=== PATIENT | female | born 1985 | race Caucasian/White ===

== ENCOUNTER 2019-12-04 15:17 | Inpatient (IN) | payer MEDICAID ==
[~2019-12-04] VITALS: Ht 154.9 cm; Wt 80.0 kg
--- NOTE | 2019-12-04 15:51 | NUR ---
Dr. Tripathi at bedside to evaluate pt. Pt c/o generalized weakness and SOB since yesterday. Pt states was at [facility] yesterday and tested positive for COVID. Pt tachypnic, 90% on 6L via NC. Pt appears drowsy but is A&O x4, denies pain at this time. Continuous heary, oxygen and BP monitors applied, all safety measures observed.
[2019-12-04 16:13] LABS: BASOPHILS % (AUTO) 0 % (0-1); EOSINOPHILS # (AUTO) 0.01 x10^3/uL (0-0.4); EOSINOPHILS % (AUTO) 0 % (1-7); LYMPHOCYTES # (AUTO) 0.92 x10^3/uL (1-3.4); LYMPHOCYTES % (AUTO) 8 % (22-44); MD NO; MEAN CORPUSCULAR HEMOGLOBIN 29.6 pg (27.0-34.8); MEAN CORPUSCULAR HGB CONC 32.1 g/dL (32.4-35.8); MEAN CORPUSCULAR VOLUME 92.2 fL (80-100); MEAN PLATELET VOLUME 8.3 fL (7.4-10.4); MONOCYTES # (AUTO) 0.45 x10^3/uL (0.2-0.8); MONOCYTES % (AUTO) 4 % (2-9); NEUTROPHILS # (AUTO) 10.05 x10^3/uL (1.8-6.8); NEUTROPHILS % (AUTO) 88 % (42-75); PLATELET COUNT 281 x10^3/uL (130-400); RED BLOOD COUNT 3.93 x10^6/uL (3.82-5.3); RED CELL DISTRIBUTION WIDTH 14.1 % (9.6-15.2)
[2019-12-04] MEDS ORDERED: FUROSEMIDE 20 MG/2 ML ONE (16:19)
[2019-12-04] MEDS ORDERED: DEXAMETHASONE 4 MG/ML, 1ML ONE (16:19)
[2019-12-04 16:21] LABS: ALANINE AMINOTRANSFERASE 79 U/L (12-78); ANION GAP 9 mmol/L (5-15); CALCIUM 8.3 mg/dL (8.5-10.1); CHLORIDE 108 mmol/L (98-107); CREATININE 0.66 mg/dL (0.55-1.02)
[2019-12-04 16:26] LABS: D-DIMER (DIC) 1.17 ug/mlFEU (0.00-0.52); PROTIME 9.1 Seconds (9.6-11.5)
[2019-12-04 16:27] LABS: ALKALINE PHOSPHATASE 165 U/L (45-117); BILIRUBIN,TOTAL 0.8 mg/dL (0.2-1.0); TOTAL PROTEIN 6.9 g/dL (6.4-8.2)
[2019-12-04] MEDS ORDERED: DOXYCYCLINE 100 MG in DEXTROSE 5% 250 ML IV SCH (16:30)
[2019-12-04] MEDS ORDERED: DEXAMETHASONE 4 MG/ML, 1ML IVPush SCH ×2 (16:30→22:30)
[2019-12-04] MEDS ORDERED: FUROSEMIDE 40 MG/4 ML IV ONE (16:30)
--- NOTE | 2019-12-04 16:45 | NUR ---
Pt able to get up to bsc to void and back to bed without difficulty. IV abx initiated per MAY. Pt with O2 sat 85% on 6L NC. Pt placed in non rebreather with O2 increased to 91%. Pt denies other needs at this time.
--- NOTE | 2019-12-04 17:15 | NUR ---
Pt reports she does not want to change into a hospital gown at this time. Pt able to get up to bsc independently to void
[2019-12-04] MEDS ORDERED: POLYETHYLENE GLYCOL 17 GM PACKET PO PRN (17:30)
[2019-12-04] MEDS ORDERED: GUAIFENESIN/DM 200-20MG, 10ML UDC PO PRN (17:30)
[2019-12-04] MEDS ORDERED: TRAZODONE 50MG TABLET PO PRN (17:30)
[2019-12-04] MEDS ORDERED: REMDESIVIR 200 MG in SODIUM CHLORIDE 0.9% 250 ML IVPB ONE (17:30)
[2019-12-04] MEDS ORDERED: POTASSIUM CHLORIDE 20 MEQ TAB.ER.PRT PO SCH (17:30)
[2019-12-04] MEDS ORDERED: ENOXAPARIN 80 MG/0.8 ML SQ SCH (17:30)
[2019-12-04] MEDS ORDERED: ACETAMINOPHEN 325 MG TABLET PO PRN (17:30)
[2019-12-04] MEDS ORDERED: ONDANSETRON 2MG/ML, 2ML IVPush PRN (17:30)
--- NOTE | 2019-12-04 17:52 | NUR ---
Pt with increasing SOB despite increased oxygen demands. Discussed with Dr. Tripathi. RT at bedside to assess pt for optiflow vs bipap
[2019-12-04] MEDS ORDERED: LORazepam 2 MG/ML, 1ML IVPush ONE (18:00)
[2019-12-04] MEDS ORDERED: LORazepam 2 MG/ML, 1ML ONE (18:01)
--- NOTE | 2019-12-04 18:25 | NUR ---
[facility] at bedside to evaluate pt.
--- NOTE | 2019-12-04 18:27 | NUR ---
Dr. Tripathi at bedside to evaluate pt.
[2019-12-04] MEDS ORDERED: PROPOFOL 100 ML IV PRN (19:05)
[2019-12-04] MEDS ORDERED: PROPOFOL 100 ML IV ONE (19:18)
--- NOTE | 2019-12-04 19:20 | NUR ---
Late entry due to pt care: Pt moved to rm [address] Tripathi. 20mg Etomidate IVP given at 1846, 100mg Succinylcholine given at 1847. RSI completed at 184- 7.5 ETT 23cm@lip inserted by Dr. Tripathi. Pt tolerated intubation well, VSS throughout. Propofol gtt initiated at 50mcg/kg/min per Dr. Tripathi at 1850. Pt opening eyes, attempting to remove ETT and other medical devices. 5mg Versed given IVP per Dr. Tripathi at 1905. Pt continues with occasional coughing and rapid resp rate: 50/min. Soft restraints applied per order. Will continue to assess need for continued medication for sedation.
[2019-12-04] MEDS ORDERED: SUCCINYLCHOLINE 20 MG/ML, 10ML IVPush ONE (19:30)
[2019-12-04] MEDS ORDERED: MIDAZOLAM 1 MG/ML, 2ML IVPush ONE ×2 (19:30→20:00)
[2019-12-04] MEDS ORDERED: ETOMIDATE 20 MG/10 ML IV ONE (19:30)
--- NOTE | 2019-12-04 19:31 | NUR ---
Pharmacy called to request STAT Versed gtt.
[2019-12-04] MEDS: MIDAZOLAM HCL 50 MG in SODIUM CHLORIDE 0.9% 40 ML IV PRN (19:52)
--- NOTE | 2019-12-04 20:22 | NUR ---
LATE ENTRY: FGOLEY PLACED. PT VERY AGITATED. VERSED DRIP STARTED. OG PLACED. PT CALMER BUT STILL HAS PERIODS OF AGGITATION, VSS. WAITING FGOR BED ASSIGNMENT
[2019-12-04] MEDS ORDERED: FENTANYL PF 1,000 MCG in SODIUM CHLORIDE 0.9% 80 ML IV PRN (20:30)
[2019-12-04] MEDS ORDERED: FENTANYL PF 100 MCG/2ML IVPush ONE ×2 (20:30→21:00)
[2019-12-04] MEDS ORDERED: FENTANYL PF 100 MCG/2ML ONE (20:33)
--- NOTE | 2019-12-04 20:48 | NUR ---
PROP REDUCED AND VERSED INCREASED DUE TO HOTN IN PT. MD NOTIFED. FENTYNAL DRIP ORDERED. CENTRAL LINE TO BE PLACED.
[2019-12-04] MEDS ORDERED: MELATONIN 5 MG TABLET PO SCH (21:00)
[2019-12-04] MEDS ORDERED: VECURONIUM 10 MG IVPush PRN (21:00)
[2019-12-04] MEDS ORDERED: KETAMINE 10 MG/ML, 20ML ONE (21:04)
[2019-12-04] MEDS ORDERED: KETAMINE 100 MG in SODIUM CHLORIDE 0.9% 99 ML IV ONE (21:06)
[2019-12-04] MEDS ORDERED: SODIUM CHLORIDE 0.9% IV ONE ×2 (21:30)
[2019-12-04] MEDS ORDERED: KETAMINE IV ONE ×2 (21:30)
--- NOTE | 2019-12-04 21:30 | NUR ---
central line placed. Pt resting after ketamine dose. ketamine drip ordered. bp improving with prop dose lowered. pt to be transferred after report
[2019-12-04] MEDS ORDERED: KETAMINE 10 MG/ML, 20ML IV ONE (22:00)
[2019-12-04] MEDS ORDERED: PHARMACY MAY ADJ FOR RENAL FX MC SCH (23:00)
[2019-12-04] MEDS ORDERED: LIDOCAINE-MPF 1%, 2ML ENDO PRN (23:00)
[2019-12-04] MEDS ORDERED: GLUCAGON 1 MG IM PRN (23:00)
[2019-12-04] MEDS ORDERED: DEXTROSE 4 GM TAB.CHEW PO PRN (23:00)
[2019-12-04] MEDS ORDERED: DEXTROSE 50%, 50ML SYRINGE IVPush PRN (23:00)
[2019-12-04] MEDS ORDERED: SENNA/DOCUSATE TABLET NG PRN (23:00)
[2019-12-04] MEDS ORDERED: ONDANSETRON 2MG/ML, 2ML IV PRN (23:00)
[2019-12-04] MEDS: FENTANYL PF 1,000 MCG in SODIUM CHLORIDE 0.9% 80 ML IV PRN (23:41)
[2019-12-04] MEDS: SODIUM CHLORIDE FLUSH 10ML SYR IVF SCH (23:42)
[2019-12-04] MEDS: AZITHROMYCIN 500 MG in SODIUM CHLORIDE 0.9% 250 ML IV SCH (23:42)
[2019-12-04] MEDS: FAMOTIDINE 20 MG/2 ML IV SCH (23:57)
[2019-12-04] MEDS ORDERED: POTASSIUM CHLORIDE 20 MEQ PACKET ONE (23:57)
[2019-12-04] MEDS: ASCORBATE SODIUM 3,000 MG in SODIUM CHLORIDE 0.9% 250 ML IVPB SCH (23:58)
[2019-12-05] MEDS ORDERED: POTASSIUM CHLORIDE 20 MEQ PACKET PO SCH
[2019-12-05 02:10] VITALS: BP 97/50
[2019-12-05] MEDS: CEFTRIAXONE PMX 2GM/50ML 50 ML IV SCH ×2 (02:28→23:44)
[2019-12-05] MEDS: PROPOFOL 100 ML IV PRN ×5 (02:28→23:55)
[2019-12-05] MEDS: ASCORBATE SODIUM 3,000 MG in SODIUM CHLORIDE 0.9% 250 ML IVPB SCH (02:33)
[2019-12-05] MEDS: NOREPINEPHRINE 8 MG in SODIUM CHLORIDE 0.9% 242 ML IV PRN ×2 (03:30→17:50)
[2019-12-05 04:43] LABS: ALBUMIN 1.7 g/dL (3.4-5.0); ANION GAP 10 mmol/L (5-15); CALCIUM 7.4 mg/dL (8.5-10.1); CHLORIDE 114 mmol/L (98-107)
[2019-12-05 04:47] LABS: ALANINE AMINOTRANSFERASE 61 U/L (12-78); ALKALINE PHOSPHATASE 131 U/L (45-117); BILIRUBIN,TOTAL 0.6 mg/dL (0.2-1.0); CREATININE 0.57 mg/dL (0.55-1.02); TOTAL PROTEIN 5.9 g/dL (6.4-8.2)
[2019-12-05 05:00] LABS: BASOPHILS # (AUTO) 0.02 x10^3/uL (0-0.1); BASOPHILS % (AUTO) 0 % (0-1); EOSINOPHILS % (AUTO) 0 % (1-7); LYMPHOCYTES # (AUTO) 1.21 x10^3/uL (1-3.4); LYMPHOCYTES % (AUTO) 12 % (22-44); MD NO; MEAN CORPUSCULAR HEMOGLOBIN 29.4 pg (27.0-34.8); MEAN CORPUSCULAR HGB CONC 31.8 g/dL (32.4-35.8); MEAN CORPUSCULAR VOLUME 92.4 fL (80-100); MEAN PLATELET VOLUME 8.8 fL (7.4-10.4); MONOCYTES # (AUTO) 0.43 x10^3/uL (0.2-0.8); MONOCYTES % (AUTO) 4 % (2-9); NEUTROPHILS # (AUTO) 8.85 x10^3/uL (1.8-6.8); NEUTROPHILS % (AUTO) 84 % (42-75); PLATELET COUNT 314 x10^3/uL (130-400); RED BLOOD COUNT 3.59 x10^6/uL (3.82-5.3); RED CELL DISTRIBUTION WIDTH 14.9 % (9.6-15.2)
[2019-12-05] MEDS: FENTANYL PF 1,000 MCG in SODIUM CHLORIDE 0.9% 80 ML IV PRN ×3 (06:05→20:20)
[2019-12-05] MEDS: MIDAZOLAM HCL 50 MG in SODIUM CHLORIDE 0.9% 40 ML IV PRN (06:06)
[2019-12-05 06:15] VITALS: BP 117/61
[2019-12-05] MEDS: ASCORBIC ACID 500 MG TABLET PO SCH ×3 (08:20→20:20)
[2019-12-05] MEDS: CHOLECALCIFEROL 5,000u TAB PO SCH (08:20)
[2019-12-05] MEDS: ZINC SULFATE 220 MG CAPSULE PO SCH (08:20)
[2019-12-05] MEDS: SENNA/DOCUSATE TABLET PO SCH (08:21)
[2019-12-05] MEDS: SODIUM CHLORIDE FLUSH 10ML SYR IVF SCH ×2 (08:21→20:19)
[2019-12-05] MEDS: DEXAMETHASONE 4 MG/ML, 1ML IVPush SCH (08:21)
[2019-12-05] MEDS: FAMOTIDINE 20 MG/2 ML IV SCH ×2 (10:39→23:44)
[2019-12-05] MEDS: ENOXAPARIN 100 MG/ML SQ SCH ×2 (10:40→23:44)
--- NOTE | 2019-12-05 15:10 | NUR ---
TF RECOMMENDATION: Promote @65mL/hr for 23 hours/day, providing 1495kcal, 93g pro, and 1254 mL free water, to start at 25mL/hr and advance 10mL/HR Q8-12 hours as tolerated; if/when medically appropriate. Addendum: 12/05/19 at [address] Amended: Links added.
[2019-12-05] MEDS: REMDESIVIR 100 MG in SODIUM CHLORIDE 0.9% 250 ML IVPB SCH (16:22)
[2019-12-05] MEDS ORDERED: MIDAZOLAM 100MG/100ML NS IV SCH (23:00)
[2019-12-05] MEDS ORDERED: MIDAZOLAM HCL 50 MG in SODIUM CHLORIDE 0.9% 40 ML IV PRN (23:00)
[2019-12-05] MEDS: AZITHROMYCIN 500 MG in SODIUM CHLORIDE 0.9% 250 ML IV SCH (23:44)
[2019-12-06] MEDS: FENTANYL PF 1,000 MCG in SODIUM CHLORIDE 0.9% 80 ML IV PRN ×3 (03:17→17:53)
[2019-12-06 04:00] VITALS: BP 106/80
[2019-12-06] MEDS: PROPOFOL 100 ML IV PRN ×4 (05:24→23:18)
[2019-12-06 06:43] LABS: BASOPHILS # (AUTO) 0.01 x10^3/uL (0-0.1); BASOPHILS % (AUTO) 0 % (0-1); EOSINOPHILS # (AUTO) 0.16 x10^3/uL (0-0.4); EOSINOPHILS % (AUTO) 1 % (1-7); LYMPHOCYTES # (AUTO) 1.53 x10^3/uL (1-3.4); LYMPHOCYTES % (AUTO) 13 % (22-44); MD NO; MEAN CORPUSCULAR HEMOGLOBIN 29.5 pg (27.0-34.8); MEAN PLATELET VOLUME 8.1 fL (7.4-10.4); MONOCYTES # (AUTO) 0.61 x10^3/uL (0.2-0.8); MONOCYTES % (AUTO) 5 % (2-9); NEUTROPHILS % (AUTO) 81 % (42-75); PLATELET COUNT 382 x10^3/uL (130-400); RED BLOOD COUNT 3.24 x10^6/uL (3.82-5.3)
[2019-12-06 06:45] LABS: ALBUMIN 1.6 g/dL (3.4-5.0); ANION GAP 8 mmol/L (5-15); CALCIUM 7.7 mg/dL (8.5-10.1); CHLORIDE 112 mmol/L (98-107)
[2019-12-06 06:48] LABS: ALANINE AMINOTRANSFERASE 49 U/L (12-78); ALKALINE PHOSPHATASE 116 U/L (45-117); BILIRUBIN,TOTAL 0.5 mg/dL (0.2-1.0); CREATININE 0.57 mg/dL (0.55-1.02); TOTAL PROTEIN 5.6 g/dL (6.4-8.2)
[2019-12-06] MEDS: ZINC SULFATE 220 MG CAPSULE PO SCH (09:00)
[2019-12-06] MEDS: SENNA/DOCUSATE TABLET PO SCH (09:24)
[2019-12-06] MEDS: ASCORBIC ACID 500 MG TABLET PO SCH ×3 (09:24→20:02)
[2019-12-06] MEDS: POTASSIUM CHLORIDE 10% 40 MEQ/30 ML UDC PO SCH ×2 (09:24→20:02)
[2019-12-06] MEDS: SODIUM CHLORIDE FLUSH 10ML SYR IVF SCH ×2 (09:24→20:12)
[2019-12-06] MEDS: DEXAMETHASONE 4 MG/ML, 1ML IVPush SCH (09:25)
[2019-12-06] MEDS: CHOLECALCIFEROL 5,000u TAB PO SCH (09:25)
[2019-12-06] MEDS: NOREPINEPHRINE 8 MG in SODIUM CHLORIDE 0.9% 242 ML IV PRN (11:04)
[2019-12-06] MEDS: ENOXAPARIN 100 MG/ML SQ SCH ×2 (11:58→23:18)
[2019-12-06] MEDS: FAMOTIDINE 20 MG/2 ML IV SCH ×2 (11:58→23:18)
[2019-12-06] MEDS: REMDESIVIR 100 MG in SODIUM CHLORIDE 0.9% 250 ML IVPB SCH (17:52)
[2019-12-06] MEDS: AZITHROMYCIN 500 MG in SODIUM CHLORIDE 0.9% 250 ML IV SCH (23:17)
[2019-12-07] MEDS: CEFTRIAXONE PMX 2GM/50ML 50 ML IV SCH (00:35)
[2019-12-07] MEDS: FENTANYL PF 1,000 MCG in SODIUM CHLORIDE 0.9% 80 ML IV PRN ×2 (02:12→08:30)
[2019-12-07 04:00] VITALS: BP 95/75
[2019-12-07] MEDS: PROPOFOL 100 ML IV PRN ×5 (04:33→23:54)
[2019-12-07 04:39] LABS: BASOPHILS # (AUTO) 0.02 x10^3/uL (0-0.1); BASOPHILS % (AUTO) 0 % (0-1); EOSINOPHILS # (AUTO) 0.26 x10^3/uL (0-0.4); EOSINOPHILS % (AUTO) 2 % (1-7); LYMPHOCYTES # (AUTO) 1.51 x10^3/uL (1-3.4); LYMPHOCYTES % (AUTO) 13 % (22-44); MD NO; MEAN CORPUSCULAR HEMOGLOBIN 29.6 pg (27.0-34.8); MEAN CORPUSCULAR HGB CONC 32.3 g/dL (32.4-35.8); MEAN CORPUSCULAR VOLUME 91.8 fL (80-100); MONOCYTES # (AUTO) 0.56 x10^3/uL (0.2-0.8); MONOCYTES % (AUTO) 5 % (2-9); NEUTROPHILS # (AUTO) 9.46 x10^3/uL (1.8-6.8); NEUTROPHILS % (AUTO) 80 % (42-75); PLATELET COUNT 354 x10^3/uL (130-400); RED BLOOD COUNT 3.06 x10^6/uL (3.82-5.3); RED CELL DISTRIBUTION WIDTH 14.6 % (9.6-15.2)
[2019-12-07 04:49] LABS: ALANINE AMINOTRANSFERASE 41 U/L (12-78); ALBUMIN 1.5 g/dL (3.4-5.0); ANION GAP 5 mmol/L (5-15); CALCIUM 7.8 mg/dL (8.5-10.1); CHLORIDE 115 mmol/L (98-107); CREATININE 0.52 mg/dL (0.55-1.02); TRIGLYCERIDES 305 mg/dL (50-200)
[2019-12-07 04:52] LABS: ALKALINE PHOSPHATASE 105 U/L (45-117); BILIRUBIN,TOTAL 0.3 mg/dL (0.2-1.0); TOTAL PROTEIN 5.5 g/dL (6.4-8.2)
[2019-12-07] MEDS: SENNA/DOCUSATE TABLET PO SCH (08:23)
[2019-12-07] MEDS: ZINC SULFATE 220 MG CAPSULE PO SCH (08:23)
[2019-12-07] MEDS: SODIUM CHLORIDE FLUSH 10ML SYR IVF SCH ×2 (08:23→20:41)
[2019-12-07] MEDS: DEXAMETHASONE 4 MG/ML, 1ML IVPush SCH (08:23)
[2019-12-07] MEDS: ASCORBIC ACID 500 MG TABLET PO SCH ×3 (08:23→20:40)
[2019-12-07] MEDS: CHOLECALCIFEROL 5,000u TAB PO SCH (08:23)
[2019-12-07] MEDS: POTASSIUM CHLORIDE 10% 40 MEQ/30 ML UDC PO SCH ×2 (08:23→20:40)
[2019-12-07] MEDS ORDERED: FUROSEMIDE 40 MG/4 ML IV ONE (09:00)
[2019-12-07] MEDS: FAMOTIDINE 20 MG/2 ML IV SCH (12:14)
[2019-12-07] MEDS: ENOXAPARIN 100 MG/ML SQ SCH (12:14)
[2019-12-07] MEDS: REMDESIVIR 100 MG in SODIUM CHLORIDE 0.9% 250 ML IVPB SCH (16:40)
[2019-12-07] MEDS: FENTANYL PF 2,500 MCG in SODIUM CHLORIDE 0.9% 200 ML IV PRN (16:41)
[2019-12-07] MEDS: NOREPINEPHRINE 8 MG in SODIUM CHLORIDE 0.9% 242 ML IV PRN (20:39)
[2019-12-08] MEDS: FAMOTIDINE 20 MG/2 ML IV SCH ×2 (00:10→11:26)
[2019-12-08] MEDS: ENOXAPARIN 100 MG/ML SQ SCH (00:10)
[2019-12-08] MEDS: AZITHROMYCIN 500 MG in SODIUM CHLORIDE 0.9% 250 ML IV SCH (00:10)
[2019-12-08] MEDS: CEFTRIAXONE PMX 2GM/50ML 50 ML IV SCH (01:09)
[2019-12-08] MEDS: PROPOFOL 100 ML IV PRN ×5 (03:21→21:41)
[2019-12-08 03:53] LABS: BASOPHILS # (AUTO) 0.02 x10^3/uL (0-0.1); BASOPHILS % (AUTO) 0 % (0-1); EOSINOPHILS % (AUTO) 2 % (1-7); LYMPHOCYTES # (AUTO) 1.45 x10^3/uL (1-3.4); LYMPHOCYTES % (AUTO) 15 % (22-44); MD NO; MEAN CORPUSCULAR HEMOGLOBIN 30.2 pg (27.0-34.8); MEAN CORPUSCULAR HGB CONC 33.2 g/dL (32.4-35.8); MEAN CORPUSCULAR VOLUME 91.1 fL (80-100); MEAN PLATELET VOLUME 8.1 fL (7.4-10.4); MONOCYTES # (AUTO) 0.61 x10^3/uL (0.2-0.8); MONOCYTES % (AUTO) 6 % (2-9); NEUTROPHILS # (AUTO) 7.31 x10^3/uL (1.8-6.8); NEUTROPHILS % (AUTO) 76 % (42-75); PLATELET COUNT 378 x10^3/uL (130-400); RED BLOOD COUNT 3.01 x10^6/uL (3.82-5.3); RED CELL DISTRIBUTION WIDTH 14.3 % (9.6-15.2)
[2019-12-08 04:00] VITALS: BP 87/50
[2019-12-08 04:05] LABS: ALANINE AMINOTRANSFERASE 40 U/L (12-78); ALBUMIN 1.5 g/dL (3.4-5.0); ANION GAP 6 mmol/L (5-15); CALCIUM 7.8 mg/dL (8.5-10.1); CHLORIDE 114 mmol/L (98-107); CREATININE 0.38 mg/dL (0.55-1.02)
[2019-12-08 04:07] LABS: ALKALINE PHOSPHATASE 105 U/L (45-117); BILIRUBIN,TOTAL 0.5 mg/dL (0.2-1.0); TOTAL PROTEIN 5.7 g/dL (6.4-8.2)
[2019-12-08] MEDS ORDERED: POTASSIUM CHLORIDE 10% 40 MEQ/30 ML UDC PO ONE (07:00)
[2019-12-08] MEDS: DEXAMETHASONE 4 MG/ML, 1ML IVPush SCH (08:20)
[2019-12-08] MEDS: ZINC SULFATE 220 MG CAPSULE PO SCH (08:20)
[2019-12-08] MEDS: SENNA/DOCUSATE TABLET PO SCH (08:20)
[2019-12-08] MEDS: ASCORBIC ACID 500 MG TABLET PO SCH ×3 (08:20→21:03)
[2019-12-08] MEDS: SODIUM CHLORIDE FLUSH 10ML SYR IVF SCH ×2 (08:21→21:03)
[2019-12-08] MEDS: CHOLECALCIFEROL 5,000u TAB PO SCH (08:21)
[2019-12-08] MEDS ORDERED: MIDAZOLAM 1 MG/ML, 5ML ONE (09:51)
[2019-12-08] MEDS ORDERED: MIDAZOLAM 1 MG/ML, 5ML IVPush ONE (10:30)
[2019-12-08] MEDS: FENTANYL PF 2,500 MCG in SODIUM CHLORIDE 0.9% 200 ML IV PRN (11:26)
--- NOTE | 2019-12-08 11:37 | NUR ---
12/07-TF GOAL: w/ propofol: VITAL HIGH PROTEIN @ 50ml/hr
[2019-12-08] MEDS ORDERED: FUROSEMIDE 40 MG/4 ML IV ONE (14:30)
[2019-12-08] MEDS: REMDESIVIR 100 MG in SODIUM CHLORIDE 0.9% 250 ML IVPB SCH (16:53)
[2019-12-09] MEDS: FAMOTIDINE 20 MG/2 ML IV SCH ×2 (00:28→12:00)
[2019-12-09] MEDS: CEFTRIAXONE PMX 2GM/50ML 50 ML IV SCH (00:28)
[2019-12-09] MEDS: PROPOFOL 100 ML IV PRN ×5 (01:33→21:07)
[2019-12-09 04:00] VITALS: BP 98/44
[2019-12-09] MEDS: FENTANYL PF 2,500 MCG in SODIUM CHLORIDE 0.9% 200 ML IV PRN ×2 (04:54→23:09)
[2019-12-09 05:52] LABS: BASOPHILS # (AUTO) 0.03 x10^3/uL (0-0.1); BASOPHILS % (AUTO) 0 % (0-1); EOSINOPHILS # (AUTO) 0.25 x10^3/uL (0-0.4); EOSINOPHILS % (AUTO) 3 % (1-7); LYMPHOCYTES # (AUTO) 1.53 x10^3/uL (1-3.4); LYMPHOCYTES % (AUTO) 16 % (22-44); MD NO; MEAN CORPUSCULAR HEMOGLOBIN 30.3 pg (27.0-34.8); MEAN CORPUSCULAR HGB CONC 33.4 g/dL (32.4-35.8); MEAN CORPUSCULAR VOLUME 90.7 fL (80-100); MONOCYTES # (AUTO) 0.63 x10^3/uL (0.2-0.8); MONOCYTES % (AUTO) 6 % (2-9); NEUTROPHILS # (AUTO) 7.42 x10^3/uL (1.8-6.8); NEUTROPHILS % (AUTO) 75 % (42-75); PLATELET COUNT 411 x10^3/uL (130-400); RED BLOOD COUNT 2.91 x10^6/uL (3.82-5.3); RED CELL DISTRIBUTION WIDTH 14.2 % (9.6-15.2)
[2019-12-09 06:29] LABS: ANION GAP 8 mmol/L (5-15); CALCIUM 8.3 mg/dL (8.5-10.1); CHLORIDE 112 mmol/L (98-107); CREATININE 0.45 mg/dL (0.55-1.02)
[2019-12-09] MEDS: ZINC SULFATE 220 MG CAPSULE PO SCH (08:20)
[2019-12-09] MEDS: POTASSIUM CHLORIDE 10% 40 MEQ/30 ML UDC PO SCH ×2 (08:20→21:06)
[2019-12-09] MEDS: DEXAMETHASONE 4 MG/ML, 1ML IVPush SCH (08:20)
[2019-12-09] MEDS: SENNA/DOCUSATE TABLET PO SCH (08:20)
[2019-12-09] MEDS: ASCORBIC ACID 500 MG TABLET PO SCH ×3 (08:20→21:07)
[2019-12-09] MEDS: CHOLECALCIFEROL 5,000u TAB PO SCH (08:20)
[2019-12-09] MEDS: SODIUM CHLORIDE FLUSH 10ML SYR IVF SCH ×2 (09:00→21:06)
[2019-12-09] MEDS: NOREPINEPHRINE 8 MG in SODIUM CHLORIDE 0.9% 242 ML IV PRN (14:04)
[2019-12-09] MEDS ORDERED: FUROSEMIDE 40 MG/4 ML IV ONE (15:00)
[2019-12-09] MEDS: ENOXAPARIN 40 MG/0.4 ML SQ SCH (15:16)
[2019-12-09] MEDS: REMDESIVIR 100 MG in SODIUM CHLORIDE 0.9% 250 ML IVPB SCH (17:11)
[2019-12-10] MEDS: CEFTRIAXONE PMX 2GM/50ML 50 ML IV SCH (00:06)
[2019-12-10] MEDS: FAMOTIDINE 20 MG/2 ML IV SCH ×3 (00:06→23:07)
[2019-12-10] MEDS: PROPOFOL 100 ML IV PRN ×6 (01:40→21:26)
[2019-12-10] MEDS: NOREPINEPHRINE 8 MG in SODIUM CHLORIDE 0.9% 242 ML IV PRN (02:38)
[2019-12-10 04:00] VITALS: BP 100/54
[2019-12-10 04:53] LABS: BASOPHILS # (AUTO) 0.02 x10^3/uL (0-0.1); BASOPHILS % (AUTO) 0 % (0-1); EOSINOPHILS # (AUTO) 0.15 x10^3/uL (0-0.4); EOSINOPHILS % (AUTO) 1 % (1-7); LYMPHOCYTES # (AUTO) 1.75 x10^3/uL (1-3.4); LYMPHOCYTES % (AUTO) 16 % (22-44); MD NO; MEAN CORPUSCULAR HEMOGLOBIN 29.6 pg (27.0-34.8); MEAN CORPUSCULAR HGB CONC 32.2 g/dL (32.4-35.8); MEAN CORPUSCULAR VOLUME 91.9 fL (80-100); MEAN PLATELET VOLUME 7.9 fL (7.4-10.4); MONOCYTES # (AUTO) 0.91 x10^3/uL (0.2-0.8); MONOCYTES % (AUTO) 8 % (2-9); NEUTROPHILS # (AUTO) 8.31 x10^3/uL (1.8-6.8); NEUTROPHILS % (AUTO) 75 % (42-75); PLATELET COUNT 432 x10^3/uL (130-400); RED BLOOD COUNT 3.04 x10^6/uL (3.82-5.3); RED CELL DISTRIBUTION WIDTH 14.2 % (9.6-15.2)
[2019-12-10 05:06] LABS: CHLORIDE 112 mmol/L (98-107)
[2019-12-10 05:12] LABS: INTERNATIONAL NORMALIZED RATIO 0.94 (0.93-1.1); PROTHROMBIN TIME 9.7 Seconds (9.6-11.5)
[2019-12-10 05:14] LABS: ALANINE AMINOTRANSFERASE 30 U/L (12-78); ALBUMIN 1.7 g/dL (3.4-5.0); ALKALINE PHOSPHATASE 96 U/L (45-117); ANION GAP 8 mmol/L (5-15); BILIRUBIN,TOTAL 0.3 mg/dL (0.2-1.0); CALCIUM 8.2 mg/dL (8.5-10.1); CREATININE 0.45 mg/dL (0.55-1.02); TRIGLYCERIDES 302 mg/dL (50-200)
[2019-12-10] MEDS: SENNA/DOCUSATE TABLET PO SCH (09:00)
[2019-12-10] MEDS: CHOLECALCIFEROL 5,000u TAB PO SCH (09:00)
[2019-12-10] MEDS: SODIUM CHLORIDE FLUSH 10ML SYR IVF SCH ×2 (09:00→20:28)
[2019-12-10] MEDS: DEXAMETHASONE 4 MG/ML, 1ML IVPush SCH (09:48)
[2019-12-10] MEDS: POTASSIUM CHLORIDE 10% 40 MEQ/30 ML UDC PO SCH ×2 (09:48→20:27)
[2019-12-10] MEDS: ZINC SULFATE 220 MG CAPSULE PO SCH (09:49)
[2019-12-10] MEDS: ASCORBIC ACID 500 MG TABLET PO SCH ×3 (09:49→20:27)
[2019-12-10] MEDS: FUROSEMIDE 40 MG/4 ML IV SCH ×2 (11:51→23:07)
[2019-12-10] MEDS ORDERED: MAGNESIUM SULFATE 1 GM in DEXTROSE 5% 100 ML IV ONE (12:00)
[2019-12-10] MEDS: FENTANYL PF 2,500 MCG in SODIUM CHLORIDE 0.9% 200 ML IV PRN (13:50)
[2019-12-10] MEDS: ENOXAPARIN 40 MG/0.4 ML SQ SCH (15:00)
[2019-12-10] MEDS: REMDESIVIR 100 MG in SODIUM CHLORIDE 0.9% 250 ML IVPB SCH (17:35)
[2019-12-11] MEDS: CEFTRIAXONE PMX 2GM/50ML 50 ML IV SCH (00:35)
[2019-12-11] MEDS: PROPOFOL 100 ML IV PRN ×7 (01:20→22:03)
[2019-12-11] MEDS: FENTANYL PF 2,500 MCG in SODIUM CHLORIDE 0.9% 200 ML IV PRN ×3 (02:18→20:46)
[2019-12-11 04:00] VITALS: BP 101/54
[2019-12-11 04:13] LABS: BASOPHILS # (AUTO) 0.11 x10^3/uL (0-0.1); BASOPHILS % (AUTO) 1 % (0-1); EOSINOPHILS # (AUTO) 0.17 x10^3/uL (0-0.4); EOSINOPHILS % (AUTO) 1 % (1-7); LYMPHOCYTES % (AUTO) 13 % (22-44); MD NO; MEAN CORPUSCULAR HEMOGLOBIN 29.8 pg (27.0-34.8); MEAN CORPUSCULAR HGB CONC 32.6 g/dL (32.4-35.8); MEAN CORPUSCULAR VOLUME 91.5 fL (80-100); MEAN PLATELET VOLUME 7.9 fL (7.4-10.4); MONOCYTES % (AUTO) 9 % (2-9); NEUTROPHILS # (AUTO) 9.52 x10^3/uL (1.8-6.8); NEUTROPHILS % (AUTO) 76 % (42-75); PLATELET COUNT 468 x10^3/uL (130-400); RED BLOOD COUNT 3.36 x10^6/uL (3.82-5.3); RED CELL DISTRIBUTION WIDTH 14.5 % (9.6-15.2)
[2019-12-11 04:25] LABS: ANION GAP 7 mmol/L (5-15); CALCIUM 8.6 mg/dL (8.5-10.1); CHLORIDE 108 mmol/L (98-107)
[2019-12-11 04:29] LABS: ALANINE AMINOTRANSFERASE 37 U/L (12-78); ALKALINE PHOSPHATASE 112 U/L (45-117); BILIRUBIN,TOTAL 0.3 mg/dL (0.2-1.0); CREATININE 0.57 mg/dL (0.55-1.02)
[2019-12-11] MEDS: SENNA/DOCUSATE TABLET PO SCH (07:58)
[2019-12-11] MEDS: ZINC SULFATE 220 MG CAPSULE PO SCH (07:58)
[2019-12-11] MEDS: ASCORBIC ACID 500 MG TABLET PO SCH ×3 (07:58→20:39)
[2019-12-11] MEDS: DEXAMETHASONE 4 MG/ML, 1ML IVPush SCH (07:58)
[2019-12-11] MEDS: CHOLECALCIFEROL 5,000u TAB PO SCH (07:59)
[2019-12-11] MEDS: SODIUM CHLORIDE FLUSH 10ML SYR IVF SCH ×2 (07:59→20:38)
[2019-12-11] MEDS: NOREPINEPHRINE 8 MG in SODIUM CHLORIDE 0.9% 242 ML IV PRN (08:00)
[2019-12-11] MEDS: FUROSEMIDE 40 MG/4 ML IV SCH ×2 (11:25→22:49)
[2019-12-11] MEDS: FAMOTIDINE 20 MG/2 ML IV SCH (11:25)
[2019-12-11] MEDS: POTASSIUM CHLORIDE 10% 40 MEQ/30 ML UDC PO SCH ×2 (11:26→20:38)
[2019-12-11] MEDS: QUETIAPINE 25MG TABLET PO SCH ×3 (11:26→20:39)
[2019-12-11] MEDS: REMDESIVIR 100 MG in SODIUM CHLORIDE 0.9% 250 ML IVPB SCH (17:25)
[2019-12-12] MEDS: FAMOTIDINE 20 MG/2 ML IV SCH ×2 (00:22→12:31)
[2019-12-12] MEDS: PROPOFOL 100 ML IV PRN (01:35)
[2019-12-12 04:00] VITALS: BP 94/51
[2019-12-12 04:19] LABS: BASOPHILS # (AUTO) 0.06 x10^3/uL (0-0.1); BASOPHILS % (AUTO) 0 % (0-1); EOSINOPHILS % (AUTO) 1 % (1-7); LYMPHOCYTES % (AUTO) 13 % (22-44); MD NO; MEAN CORPUSCULAR HEMOGLOBIN 29.9 pg (27.0-34.8); MEAN CORPUSCULAR HGB CONC 32.5 g/dL (32.4-35.8); MEAN PLATELET VOLUME 8.1 fL (7.4-10.4); MONOCYTES # (AUTO) 0.83 x10^3/uL (0.2-0.8); MONOCYTES % (AUTO) 6 % (2-9); NEUTROPHILS # (AUTO) 10.82 x10^3/uL (1.8-6.8); NEUTROPHILS % (AUTO) 79 % (42-75); PLATELET COUNT 483 x10^3/uL (130-400); RED BLOOD COUNT 3.51 x10^6/uL (3.82-5.3); RED CELL DISTRIBUTION WIDTH 14.3 % (9.6-15.2)
[2019-12-12 04:24] LABS: ALANINE AMINOTRANSFERASE 45 U/L (12-78); ALBUMIN 2.1 g/dL (3.4-5.0); ANION GAP 8 mmol/L (5-15); CALCIUM 8.7 mg/dL (8.5-10.1); CHLORIDE 106 mmol/L (98-107); CREATININE 0.52 mg/dL (0.55-1.02)
[2019-12-12 04:26] LABS: ALKALINE PHOSPHATASE 124 U/L (45-117); BILIRUBIN,TOTAL 0.4 mg/dL (0.2-1.0); TOTAL PROTEIN 7.2 g/dL (6.4-8.2)
[2019-12-12] MEDS: ZINC SULFATE 220 MG CAPSULE PO SCH (08:42)
[2019-12-12] MEDS: DEXAMETHASONE 4 MG/ML, 1ML IVPush SCH (08:42)
[2019-12-12] MEDS: ASCORBIC ACID 500 MG TABLET PO SCH ×2 (08:42→17:14)
[2019-12-12] MEDS: POTASSIUM CHLORIDE 10% 40 MEQ/30 ML UDC PO SCH (08:42)
[2019-12-12] MEDS: SODIUM CHLORIDE FLUSH 10ML SYR IVF SCH ×2 (08:42→20:31)
[2019-12-12] MEDS: QUETIAPINE 25MG TABLET PO SCH ×2 (08:43→17:14)
[2019-12-12] MEDS: CHOLECALCIFEROL 5,000u TAB PO SCH (08:43)
[2019-12-12] MEDS: SENNA/DOCUSATE TABLET PO SCH (08:43)
[2019-12-12] MEDS: NOREPINEPHRINE 8 MG in SODIUM CHLORIDE 0.9% 242 ML IV PRN (10:30)
[2019-12-12] MEDS: PRENATAL VIT/IRON/FA 1 EACH TABLET PO SCH (11:00)
[2019-12-12] MEDS ORDERED: SCOPOLAMINE 1MG PATCH TD ONE (11:00)
[2019-12-12] MEDS ORDERED: FUROSEMIDE 40 MG/4 ML ONE (12:19)
[2019-12-12] MEDS ORDERED: FUROSEMIDE 40 MG/4 ML IV ONE (12:30)
[2019-12-12] MEDS: FENTANYL PF 2,500 MCG in SODIUM CHLORIDE 0.9% 200 ML IV PRN (12:41)
[2019-12-12] MEDS: ALBUTEROL/IPRATROPIUM 2.5MG/0.5MG, 3 ML NPPB SCH ×3 (16:30→23:00)
[2019-12-12] MEDS ORDERED: ACETAMINOPHEN 325 MG TABLET PO PRN (16:30)
[2019-12-12] MEDS: REMDESIVIR 100 MG in SODIUM CHLORIDE 0.9% 250 ML IVPB SCH (17:26)
[2019-12-13] MEDS: ASCORBIC ACID 500 MG TABLET PO SCH ×4 (00:30→23:11)
[2019-12-13] MEDS: QUETIAPINE 25MG TABLET PO SCH ×4 (00:31→20:57)
[2019-12-13] MEDS: FAMOTIDINE 20 MG TABLET PO SCH ×2 (00:31→08:40)
[2019-12-13] MEDS: ALBUTEROL/IPRATROPIUM 2.5MG/0.5MG, 3 ML NPPB SCH ×6 (02:55→22:57)
[2019-12-13 04:09] VITALS: BP 95/66
[2019-12-13 04:40] LABS: ALANINE AMINOTRANSFERASE 67 U/L (12-78); ALBUMIN 2.3 g/dL (3.4-5.0); ANION GAP 10 mmol/L (5-15); CALCIUM 9.4 mg/dL (8.5-10.1); CHLORIDE 103 mmol/L (98-107); CREATININE 0.56 mg/dL (0.55-1.02); TRIGLYCERIDES 408 mg/dL (50-200)
[2019-12-13 04:42] LABS: ALKALINE PHOSPHATASE 138 U/L (45-117); BILIRUBIN,TOTAL 0.7 mg/dL (0.2-1.0); TOTAL PROTEIN 8.2 g/dL (6.4-8.2)
[2019-12-13 04:45] LABS: BASOPHILS # (AUTO) 0.06 x10^3/uL (0-0.1); BASOPHILS % (AUTO) 0 % (0-1); EOSINOPHILS # (AUTO) 0.39 x10^3/uL (0-0.4); EOSINOPHILS % (AUTO) 2 % (1-7); LYMPHOCYTES # (AUTO) 2.06 x10^3/uL (1-3.4); LYMPHOCYTES % (AUTO) 12 % (22-44); MD NO; MEAN CORPUSCULAR HEMOGLOBIN 29.5 pg (27.0-34.8); MEAN CORPUSCULAR HGB CONC 32.5 g/dL (32.4-35.8); MEAN CORPUSCULAR VOLUME 90.7 fL (80-100); MEAN PLATELET VOLUME 8.1 fL (7.4-10.4); MONOCYTES # (AUTO) 1.19 x10^3/uL (0.2-0.8); MONOCYTES % (AUTO) 7 % (2-9); NEUTROPHILS # (AUTO) 13.06 x10^3/uL (1.8-6.8); NEUTROPHILS % (AUTO) 78 % (42-75); PLATELET COUNT 519 x10^3/uL (130-400); RED BLOOD COUNT 3.88 x10^6/uL (3.82-5.3); RED CELL DISTRIBUTION WIDTH 13.8 % (9.6-15.2)
[2019-12-13] MEDS: PRENATAL VIT/IRON/FA 1 EACH TABLET PO SCH (08:39)
[2019-12-13] MEDS: ZINC SULFATE 220 MG CAPSULE PO SCH (08:39)
[2019-12-13] MEDS: CHOLECALCIFEROL 5,000u TAB PO SCH (08:39)
[2019-12-13] MEDS: POTASSIUM CHLORIDE 10% 40 MEQ/30 ML UDC PO SCH (08:39)
[2019-12-13] MEDS: DEXAMETHASONE 4 MG/ML, 1ML IVPush SCH (08:40)
[2019-12-13] MEDS: SENNA/DOCUSATE TABLET PO SCH (08:40)
[2019-12-13] MEDS: SODIUM CHLORIDE FLUSH 10ML SYR IVF SCH ×2 (08:42→20:58)
[2019-12-13] MEDS ORDERED: FUROSEMIDE 40 MG/4 ML IV SCH (09:00)
[2019-12-13] MEDS: REMDESIVIR 100 MG in SODIUM CHLORIDE 0.9% 250 ML IVPB SCH (17:26)
[2019-12-13] MEDS: NOREPINEPHRINE 8 MG in SODIUM CHLORIDE 0.9% 242 ML IV PRN (20:57)
[2019-12-13] MEDS: ENOXAPARIN 40 MG/0.4 ML SQ SCH (20:58)
[2019-12-13] MEDS ORDERED: QUETIAPINE 100MG TABLET PO SCH (21:00)
[2019-12-14] MEDS: ALBUTEROL/IPRATROPIUM 2.5MG/0.5MG, 3 ML NPPB SCH ×4 (03:00→14:08)
[2019-12-14 04:26] VITALS: BP 112/67
[2019-12-14 05:04] LABS: ANION GAP 10 mmol/L (5-15); CALCIUM 9.1 mg/dL (8.5-10.1); CHLORIDE 106 mmol/L (98-107); CREATININE 0.54 mg/dL (0.55-1.02)
[2019-12-14 05:07] LABS: MEAN CORPUSCULAR HEMOGLOBIN 29.7 pg (27.0-34.8); MEAN CORPUSCULAR HGB CONC 32.4 g/dL (32.4-35.8); MEAN CORPUSCULAR VOLUME 91.5 fL (80-100); MEAN PLATELET VOLUME 8.1 fL (7.4-10.4); PLATELET COUNT 515 x10^3/uL (130-400); RED BLOOD COUNT 3.62 x10^6/uL (3.82-5.3); RED CELL DISTRIBUTION WIDTH 14.3 % (9.6-15.2)
[2019-12-14 05:27] LABS: BASOPHILS # (AUTO) 0.07 x10^3/uL (0-0.1); BASOPHILS % (AUTO) 1 % (0-1); EOSINOPHILS # (AUTO) 0.24 x10^3/uL (0-0.4); EOSINOPHILS % (AUTO) 2 % (1-7); LYMPHOCYTES # (AUTO) 1.82 x10^3/uL (1-3.4); LYMPHOCYTES % (AUTO) 14 % (22-44); MD SCAN; MONOCYTES % (AUTO) 9 % (2-9); NEUTROPHILS # (AUTO) 9.66 x10^3/uL (1.8-6.8); NEUTROPHILS % (AUTO) 75 % (42-75)
[2019-12-14] MEDS ORDERED: DEXAMETHASONE 4 MG TABLET ONE (08:17)
[2019-12-14] MEDS ORDERED: QUETIAPINE 25MG TABLET PO SCH (09:00)
[2019-12-14] MEDS ORDERED: DEXAMETHASONE INTENSOL 1 MG/ML ORAL SOL PO SCH (09:00)
[2019-12-14] MEDS ORDERED: ALBUMIN HUMAN 25% 100 ML IV ONE ×4 (09:00→14:30)
[2019-12-14] MEDS: DEXAMETHASONE INTENSOL 1 MG/ML ORAL SOL PO SCH (09:00)
[2019-12-14] MEDS: POTASSIUM CHLORIDE 10% 40 MEQ/30 ML UDC PO SCH (09:20)
[2019-12-14] MEDS: CHOLECALCIFEROL 5,000u TAB PO SCH (09:20)
[2019-12-14] MEDS: ZINC SULFATE 220 MG CAPSULE PO SCH (09:20)
[2019-12-14] MEDS: SENNA/DOCUSATE TABLET PO SCH (09:20)
[2019-12-14] MEDS: ASCORBIC ACID 500 MG TABLET PO SCH ×3 (09:20→20:45)
[2019-12-14] MEDS: SODIUM CHLORIDE FLUSH 10ML SYR IVF SCH ×2 (09:21→21:00)
[2019-12-14] MEDS: PRENATAL VIT/IRON/FA 1 EACH TABLET PO SCH (10:37)
[2019-12-14] MEDS: ALBUTEROL-IPRATROPIUM MDI INH INH SCH ×2 (16:50→19:41)
[2019-12-14] MEDS: QUETIAPINE 25MG TABLET PO SCH (20:45)
[2019-12-14] MEDS: ENOXAPARIN 40 MG/0.4 ML SQ SCH (20:45)
[2019-12-15 04:00] VITALS: BP 108/63
[2019-12-15] MEDS: ALBUTEROL-IPRATROPIUM MDI INH INH SCH ×2 (05:17→10:22)
[2019-12-15 05:48] LABS: CHLORIDE 109 mmol/L (98-107)
[2019-12-15 05:54] LABS: ANION GAP 8 mmol/L (5-15); CALCIUM 9.6 mg/dL (8.5-10.1); CREATININE 0.49 mg/dL (0.55-1.02)
[2019-12-15 06:13] LABS: MEAN CORPUSCULAR HEMOGLOBIN 29.4 pg (27.0-34.8); MEAN CORPUSCULAR HGB CONC 32.1 g/dL (32.4-35.8); MEAN CORPUSCULAR VOLUME 91.6 fL (80-100); MEAN PLATELET VOLUME 8.1 fL (7.4-10.4); PLATELET COUNT 433 x10^3/uL (130-400); RED BLOOD COUNT 3.28 x10^6/uL (3.82-5.3); RED CELL DISTRIBUTION WIDTH 14.1 % (9.6-15.2)
[2019-12-15 06:36] LABS: BASOPHILS # (AUTO) 0.04 x10^3/uL (0-0.1); BASOPHILS % (AUTO) 0 % (0-1); EOSINOPHILS # (AUTO) 0.16 x10^3/uL (0-0.4); EOSINOPHILS % (AUTO) 2 % (1-7); LYMPHOCYTES # (AUTO) 2.04 x10^3/uL (1-3.4); LYMPHOCYTES % (AUTO) 21 % (22-44); MD NO; MONOCYTES # (AUTO) 1.02 x10^3/uL (0.2-0.8); MONOCYTES % (AUTO) 10 % (2-9); NEUTROPHILS # (AUTO) 6.49 x10^3/uL (1.8-6.8); NEUTROPHILS % (AUTO) 67 % (42-75)
[2019-12-15] MEDS: ASCORBIC ACID 500 MG TABLET PO SCH ×3 (08:31→21:30)
[2019-12-15] MEDS: SENNA/DOCUSATE TABLET PO SCH (08:31)
[2019-12-15] MEDS: PRENATAL VIT/IRON/FA 1 EACH TABLET PO SCH (08:31)
[2019-12-15] MEDS: DEXAMETHASONE INTENSOL 1 MG/ML ORAL SOL PO SCH (08:32)
[2019-12-15] MEDS: CHOLECALCIFEROL 5,000u TAB PO SCH (08:32)
[2019-12-15] MEDS: ZINC SULFATE 220 MG CAPSULE PO SCH (08:32)
[2019-12-15] MEDS: SODIUM CHLORIDE FLUSH 10ML SYR IVF SCH ×2 (09:00→21:00)
[2019-12-15] MEDS ORDERED: ALBUTEROL-IPRATROPIUM MDI INH INH PRN (15:30)
[2019-12-15] MEDS: QUETIAPINE 25MG TABLET PO SCH (21:31)
[2019-12-15] MEDS: ENOXAPARIN 40 MG/0.4 ML SQ SCH (21:31)
[2019-12-15 22:46] LABS: MICROSCOPIC INDICATED
[2019-12-16 04:00] VITALS: BP 112/72
[2019-12-16] MEDS ORDERED: NITROFURANTOIN (MACROBID) 100 MG CAPSULE PO SCH (09:00)
[2019-12-16] MEDS: ENOXAPARIN 40 MG/0.4 ML SQ SCH (09:16)
[2019-12-16] MEDS: PRENATAL VIT/IRON/FA 1 EACH TABLET PO SCH (09:16)
[2019-12-16] MEDS: ASCORBIC ACID 500 MG TABLET PO SCH ×2 (09:17→15:24)
[2019-12-16] MEDS: ZINC SULFATE 220 MG CAPSULE PO SCH (09:17)
[2019-12-16] MEDS: SENNA/DOCUSATE TABLET PO SCH (09:17)
[2019-12-16] MEDS: SODIUM CHLORIDE FLUSH 10ML SYR IVF SCH (09:17)
[2019-12-16] MEDS: CHOLECALCIFEROL 5,000u TAB PO SCH (09:17)
[2019-12-16] MEDS ORDERED: NITR100C6 PO (09:42)
[2019-12-16] MEDS ORDERED: Prenatal Vit/Iron/Fa PO (09:42)
== END 2019-12-16 16:02 | disposition home or self-care (01) | DRG 831 ==
LOC: ED 16:51 → EDIP 16:54 → UNDOADMIN 16:54 → EDIP 20:08 → ICU 22:38
PROVIDERS: ADMIT Hospitalist; ATTEND Hospitalist
PROC: 5A1955Z Respiratory Ventilation, Greater than 96 Consecutive Hours (ICD-10-PCS; 2019-12-04)
PROC: 0BH17EZ Insertion of Endotracheal Airway into Trachea, Via Natural or Artificial Opening (ICD-10-PCS; principal; 2019-12-08)
DX: O98.812 Other maternal infectious and parasitic diseases complicating pregnancy, second trimester (principal); A41.89 Other specified sepsis; E43 Unspecified severe protein-calorie malnutrition; U07.1 COVID-19; R65.21 Severe sepsis with septic shock; J96.01 Acute respiratory failure with hypoxia; J12.89 Other viral pneumonia; G93.41 Metabolic encephalopathy; Z99.11 Dependence on respirator [ventilator] status; O99.112 Other diseases of the blood and blood-forming organs and certain disorders involving the immune mechanism complicating pregnancy, second trimester; O23.42 Unspecified infection of urinary tract in pregnancy, second trimester; O41.02X0 Oligohydramnios, second trimester, not applicable or unspecified; E87.2 Acidosis; D68.9 Coagulation defect, unspecified; O98.512 Other viral diseases complicating pregnancy, second trimester; E83.39 Other disorders of phosphorus metabolism; O99.512 Diseases of the respiratory system complicating pregnancy, second trimester; O99.352 Diseases of the nervous system complicating pregnancy, second trimester; O99.332 Smoking (tobacco) complicating pregnancy, second trimester; O99.282 Endocrine, nutritional and metabolic diseases complicating pregnancy, second trimester; O25.12 Malnutrition in pregnancy, second trimester; F17.210 Nicotine dependence, cigarettes, uncomplicated; E87.6 Hypokalemia; Z83.3 Family history of diabetes mellitus; Z82.49 Family history of ischemic heart disease and other diseases of the circulatory system; Z79.899 Other long term (current) drug therapy; Z3A.22 22 weeks gestation of pregnancy
CPT/HCPCS: 36415; 36600; 84145; 96374; 96375; 99291; J3490; 71045; 76815; 80048; 80053; 81001; 82728; 82803; 82962; 83605; 83615; 83735; 84100; 84478; 84703; 85025; 85049; 85379; 85384; 85610; 85730; 86140; 87040; 87070; 87081; 87086; 87205; 87635; 93005; 94002; 94003; 94640; G0378; J0456; J0696; J1100; J1650; J1940; J2250; J2704; J3010; J3475; J7060; P9047; J0330; J2060; J7050